=== PATIENT | male | born 1935 | race Caucasian/White ===

== ENCOUNTER 2016-06-25 03:10 | Day surgery (SDC) | payer MEDICARE, OTHER ==
[~2016-06-25] VITALS: Ht 177.8 cm; Wt 102.7 kg
[~2016-06-25 03:10] MED LIST: AMLO5TAB2 PO; ATEN100T PO; CYAN100T PO; DABI75CA3 PO; FINA5TAB9 PO; FLC50T PO; GLUC100016 PO; HYDR25TA4 PO; LISI40TA PO; MULT-1073 PO; OMEG-38 PO; OMEP20CA11 PO; OXYB15TA PO; SERT25TA2 PO; TADA20TA PO
--- NOTE | 2016-06-25 09:30 | NUR ---
Dr White called and informed that patient's last dose of flecainide was Friday morning 06/23/16. Patient states that his medication ran out and he had notified the cardiology office. Dr White will reschedule patient's cardioversion.
[2016-06-25 09:31] VITALS: BP 158/82; PULSE 62; RESP 19; O2SAT 99
[2016-06-25 09:34] LABS: BASOPHILS % (AUTO) 0.5 % (0-3); EOSINOPHILS % (AUTO) 1.9 % (0-5); MONOCYTES % (AUTO) 11.8 % (4-12); Mean Corpuscular Hemoglobin 24.8 pg (27.0-35.0); Mean Corpuscular Volume 79.2 fL (81-100); NEUTROPHILS % (AUTO) 61.7 % (40-74); Platelet Count 168 bil/L (150-400)
--- NOTE | 2016-06-25 10:30 | NUR ---
Dr White here to see patient. New prescription given for flecainide. Patient instructed to take flecainid and pradax on day of procedure which is rescheduled for wednesday 06/28. Patient discharged ambulatory with his daughter.
[2016-06-27] MEDS ORDERED: SILD100T PO (19:58)
== END 2016-06-25 23:59 | disposition home or self-care (01) ==
LOC: SOUO 03:10
PROVIDERS: ATTEND Internal Medicine Interventional Cardiology
DX: I48.0 Paroxysmal atrial fibrillation (principal); Z53.09 Procedure and treatment not carried out because of other contraindication; Z91.128 Patient's intentional underdosing of medication regimen for other reason; T46.2X6A Underdosing of other antidysrhythmic drugs, initial encounter

== ENCOUNTER 2016-06-28 05:42 | Day surgery (SDC) | payer MEDICARE, OTHER ==
[~2016-06-28] VITALS: Ht 177.8 cm; Wt 102.7 kg
[~2016-06-28 05:42] MED LIST changes: -OMEP20CA11 PO; +SILD100T PO; -TADA20TA PO
[2016-06-28] MEDS ORDERED: 0.9% Sodium Chloride 1,000 ML ONE (11:14)
[2016-06-28 12:32] VITALS: BP 155/93; PULSE 69; RESP 16; O2SAT 97
[2016-06-28] MEDS ORDERED: Methohexital 10 mg/mL 50 mL Inj ONE (12:40)
[2016-06-28] MEDS ORDERED: Flumazenil 0.1 mg/mL 5 mL Inj IV ONE (12:41)
[2016-06-28 13:17] VITALS: BP 156/84; RESP 20
[2016-06-28 13:30] VITALS: BP 161/75; PULSE 63; RESP 19; O2SAT 98
[2016-06-28] MEDS ORDERED: CHOL100045 PO (13:35)
[2016-06-28 13:40] VITALS: BP 157/80; PULSE 68; RESP 19; O2SAT 99
--- NOTE | 2016-06-28 13:44 | OP ---
[address] [address] OPERATIVE REPORT PATIENT: TITI IBRAHIM : 1935 MR#: [id number] ADMIT: 06/28/2016 JOB ID: [id number] DATE OF SURGERY: 06/28/2016 SURGEON: Ezra Marques MD. PREOPERATIVE DIAGNOSIS(ES): Atrial fibrillation. POSTOPERATIVE DIAGNOSIS(ES): Atrial fibrillation. PATIENT PROFILE: The patient is a 80 years old male who has been in atrial fibrillation since February 2016. He was started on flecainide for the past month. PROCEDURE: Synchronous cardioversion. COMPLICATIONS: None. METHOD: Synchronous cardioversion was performed in the [facility] under IV analgesia with 1 mg of Versed and 50 mg of Brevital. It was delivered with biphasic 120 and 150 joules. However, the patient remains in atrial fibrillation.
[2016-06-28 13:50] VITALS: BP 161/94; PULSE 78; RESP 22
--- NOTE | 2016-06-28 14:08 | NUR ---
Pt given discharge instructions and sent home ambulatory with his daughter to drive him home.
== END 2016-06-28 23:59 | disposition home or self-care (01) ==
LOC: SOUO 05:42
PROVIDERS: ATTEND Internal Medicine Interventional Cardiology
DX: I48.0 Paroxysmal atrial fibrillation (principal); I34.0 Nonrheumatic mitral (valve) insufficiency; I10 Essential (primary) hypertension; E78.5 Hyperlipidemia, unspecified; I87.2 Venous insufficiency (chronic) (peripheral); F32.9 Major depressive disorder, single episode, unspecified; Z79.01 Long term (current) use of anticoagulants; Z79.899 Other long term (current) drug therapy
CPT/HCPCS: 92960; J2250; J7030